=== PATIENT | male | born 1950 | race Caucasian/White ===

== ENCOUNTER 2023-10-07 10:20 | Day surgery (SDC) | payer OTHER ==
[~2023-10-07] VITALS: Ht 171.4 cm; Wt 79.9 kg
[~2023-10-07 10:20] MED LIST: LR 1,000 ML IV SCH; ceFAZolin SODIUM 2 GM in D5W 100 ML IV ONE
[2023-10-07 12:45] VITALS: O2SAT 98
[2023-10-07] MEDS ORDERED: DEXAMETHASONE SOD PHOSPHATE 4 MG/ML VIAL ONE (13:00)
[2023-10-07] MEDS ORDERED: ONDANSETRON HCL 4 MG/2 ML VIAL IVP PRN (14:30)
[2023-10-07] MEDS ORDERED: METOCLOPRAMIDE HCL 10 MG/2 ML VIAL IVP PRN (14:30)
[2023-10-07] MEDS ORDERED: IBUPROFEN 600 MG TABLET PO ONE (14:30)
[2023-10-07] MEDS ORDERED: ACETAMINOPHEN I.V. 1000 MG 100 ML IV ONE (15:41)
[2023-10-07] MEDS ORDERED: traMADol HCL HCL 50 MG TABLET (ULTRAM) PO PRN (16:15)
[2023-10-07] MEDS: HYDROmorphone 1 MG/ML INJ. CARTRIDGE IVP PRN (16:20)
[2023-10-07] MEDS ORDERED: HYDROmorphone 1 MG/ML INJ. CARTRIDGE ONE (16:35)
[2023-10-07 17:47] VITALS: BP_SYST 156; PULSE 67; RESP 16
[2023-10-07] MEDS ORDERED: traMADol HCL HCL 50 MG TABLET (ULTRAM) ONE (18:20)
[2023-10-07] MEDS: traMADol HCL HCL 50 MG TABLET (ULTRAM) PO ONE (18:25)
== END 2023-10-07 18:30 | disposition home or self-care (01) ==
LOC: SDS 10:20 → SMU 10:21 → SDS 18:30
PROVIDERS: ATTEND Surgery
DX: K40.91 Unilateral inguinal hernia, without obstruction or gangrene, recurrent (principal); K21.9 Gastro-esophageal reflux disease without esophagitis; Z98.890 Other specified postprocedural states; Z87.891 Personal history of nicotine dependence; Z79.899 Other long term (current) drug therapy
CPT/HCPCS: 87081; 49651; J3490; J0690; J1100; J1885; J2405; J2704; J0330; J1170; J7060; J7120; C1727; C1781; J0131; S2900